=== PATIENT | male | born 1960 | race Caucasian/White ===

== ENCOUNTER 2017-01-25 23:24 | Emergency (ER) | payer MEDICARE ==
[~2017-01-25 23:24] MED LIST: ACETAMINOPHEN-1 EAC1 PO; ASPIR 8181 MG PO; ETODOLAC400 MG PO; KLONOPIN0.5 MG PO; LIPITOR10 MG PO; MECLIZINE HCL25 MG PO; METOPROLOL TART25 MG PO; NEURONTIN300 MG PO
== END 2017-01-26 | disposition home or self-care (01) ==
LOC: ER 23:24
DX: T16.1XXA Foreign body in right ear, initial encounter (principal); I10 Essential (primary) hypertension; E78.5 Hyperlipidemia, unspecified; F17.210 Nicotine dependence, cigarettes, uncomplicated; Z79.82 Long term (current) use of aspirin; Z79.899 Other long term (current) drug therapy; Z98.52 Vasectomy status